=== PATIENT | male | born 1985 | race Caucasian/White ===

== ENCOUNTER 2023-03-06 17:20 | Emergency (ER) | payer OTHER, BC, SELFPAY ==
--- NOTE | ~2023-03-06 | XR_ITS ---
EXAMINATION: XR foot RT min 3V DATE: 03/06/2023 17:47 INDICATION: Right foot injury and pain. TECHNIQUE: 4 views of right foot were obtained. COMPARISON: None. FINDINGS: Bone alignment is normal. No fracture. There is mild osteoarthritis of first metatarsophala ngeal joint and some of the interphalangeal joints and midfoot joints. There are enthesophytes at the posterior and plantar aspects of calcaneal tuberosity. IMPRESSION: 1. Mild polyarticular osteoarthritis. Reviewed, dictated and finalized at location E.
[2023-03-06 17:37] VITALS: BP 163/96; PULSE 73; RESP 16; TEMP 36.3; O2SAT 100
--- NOTE | 2023-03-06 17:37 | ED.LOWEXIN ---
HPI - Extremity Injury (Lower) General Chief Complaint: Extremity Injury, Lower Stated Complaint: Right foot injury Source: patient Mode of arrival: ambulatory Limitations: no limitations History of Present Illness HPI Narrative: 37 y/o male presented for c/o right foot pain after injury this morning. 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 States the pain did not start until after lunch. Pain mostly to the heel area, pain only when walking. Rates pain 5/10. Took Naproxen. Denies numbness, tingling, weakness, deformity. He has been walking on it since the injury. Patient does not have PCP. Related Data Allergies Allergy/AdvReac Type Severity Reaction Status Date / Time No Known Allergies Allergy Verified 03/06/23 17:36 Review of Systems Review of Systems: CONSTITUTIONAL: Denies body aches, fever, chills EYES: Denies visual changes ENT: Denies rhinorrhea, congestion CARDIOVASCULAR: Denies chest pain, palpitations, or edema. RESPIRATORY: Denies cough or dyspnea. GASTROINTESTINAL: Denies abdominal pain, nausea, vomiting, or diarrhea. SKIN: Denies rash, itching, or wounds. MUSCULOSKELETAL: Reports right foot pain. Denies back pain, joint pain, or myalgia. NEUROLOGIC: Denies headache, numbness, tingling, or weakness. All systems reviewed & are unremarkable except as noted in HPI and below PMFSH Past Medical History Medical History (Updated 03/06/23 @ 18:23 by Peggy Haywood, BY[place]) Patient denies significant medical history Comments At time of signature, I have reviewed and agree with nursing past medical, surgical, social and family history unless otherwise noted. Please see nursing chart for further information. There is no relevant family history pertinent to the presenting complaint Exam Narrative: GENERAL: Well-appearing, in no acute distress. HEAD: Normocephalic, atraumatic. EYES: conjunctivae clear CHEST: Speaks in full sentences. No respiratory distress. HEART: Regular rate and rhythm. Normal and equal peripheral pulses. EXTREMITIES: Right foot plantar surface and lateral aspect of heel tender with deep palpation. and Right foot/ankle has normal strength and sensation, normal range of motion, No swelling or ecchymosis. No open wounds or obvious deformity; alignment normal, pulse palpable and equal bilaterally, skin warm, dry, pink. Capillary refill less than 3 seconds. SKIN: Warm, dry, no rash. NEURO: Alert and oriented x3. PSYCH: Normal mood and affect Course Course Emergency Course: Patient is aware of diagnosis, understands and agrees to treatment plan. Anticipatory guidance given. Patient agrees to follow-up as directed and is aware of reasons to seek care at the emergency department. Portions of this record may have been created with voice recognition software Level of Care: Express Care Visit Vital Signs Vital signs: Vital Signs Temperature 97.3 F L 03/06/23 17:37 Pulse Rate 73 03/06/23 17:37 Respiratory Rate 16 03/06/23 17:37 Blood Pressure 163/96 H 03/06/23 17:37 Pulse Oximetry 100 03/06/23 17:37 Temperature 97.3 F L 03/06/23 17:37 Pulse Rate 73 03/06/23 17:37 Respiratory Rate 16 03/06/23 17:37 Blood Pressure 163/96 H 03/06/23 17:37 Pulse Oximetry 100 03/06/23 17:37 Reviewed MDM - Extremity Injury (Lower) MDM Narrative Medical decision making narrative: Result of xray reviewed with pt. Discussed physical exam findings. Also discussed elevated BP readings; bp slightly improved on recheck. States he has been checking BP at home, and has had readings in the 150's systolic. He does not have PCP, advised to establish and provider list given. Advised supportive measures and signs/symptoms to go to the ER. Pt is appropriate for outpt treatment and f/u. Differential Diagnosis Differential diagnosis: Likely ankle sprain and strain, puncture wound of foot, ankle fracture and other (foot sprain/strain, contusion, fractu
[2023-03-06 18:30] VITALS: BP 149/96
== END 2023-03-06 18:32 | disposition home or self-care (01) ==
PROVIDERS: Emergency Provider Nurse Practitioner Family
DX: M79.671 Pain in right foot (principal); R03.0 Elevated blood-pressure reading, without diagnosis of hypertension
CPT/HCPCS: 73630; 99213; G0463

== ENCOUNTER 2025-08-27 11:38 | Emergency (ER) | payer OTHER, SELFPAY ==
--- NOTE | ~2025-08-27 | XR_ITS ---
XR knee RT 3V 08/27/2025 13:01 Indication: Right knee pain after feeling pop in knee. Procedure: 4 views right knee Comparison: No prior studies for comparison. Findings: There is moderate patellofemoral compartment osteoarthritis. Small joint effusion. No acute fracture, subluxation or dislocation. There is anatomic alignment. Impression: 1: Moderate patellofemoral compartment osteoarthritis. 2: Small knee effusion. Reviewed, dictated and finalized at location O. [employer] ADMINISTRATOR Impression: 1: Moderate patellofemoral compartment osteoarthritis. 2: Small knee effusion.
[2025-08-27 12:02] VITALS: BP 154/90; PULSE 76; RESP 20; TEMP 36.4; O2SAT 100
--- NOTE | 2025-08-27 13:19 | ED.LOWEXIN ---
HPI - Extremity Injury (Lower) General Chief Complaint: Extremity Injury, Lower Stated Complaint: R knee pain Time Seen by Provider: 08/27/25 13:19 Source: patient Mode of arrival: ambulatory Limitations: no limitations History of Present Illness HPI Narrative: Patient is a 39 y/o male who presents to the ED with c/o R knee pain. Patient reports he was getting into his work truck today when he felt and heard a sharp pop in his right knee. Complains of pain/swelling to his right knee, difficulty ambulating due to the pain. Has not taken anything for pain. Denies numbness. Denies any other injuries. Related Data Allergies Allergy/AdvReac Type Severity Reaction Status Date / Time No Known Allergies Allergy Verified 08/27/25 11:40 Review of Systems Review of Systems: All systems reviewed & are unremarkable except as noted in HPI. All systems reviewed & are unremarkable except as noted in HPI and below PMFSH Past Medical History Medical History Patient denies significant medical history Exam Narrative: GENERAL: Well appearing, morbidly obese with BMI 51.6, non-toxic, in no acute distress. HEAD: Normocephalic, atraumatic. RESPIRATORY: Airway patent, respirations nonlabored. CARDIOVASCULAR: Regular rate and rhythm without murmurs, rubs, or gallops. Pedal pulses intact MUSCULOSKELETAL: Moves all extremities. No gross deformities. No significant focal swelling throughout right anterior knee. Mild tenderness to palpation throughout right knee inferior/lateral joint spaces. Sensation intact. No calf tenderness. SKIN: Warm, dry, normal color. NEURO: A&O X3. Speech clear. Cranial nerves II-XII grossly intact. No ataxic movements. PSYCHIATRIC: Appropriate mood and affect. Normal interaction. Course Vital Signs Vital signs: Vital Signs Temperature 97.6 F 08/27/25 12:02 Pulse Rate 76 08/27/25 12:02 Respiratory Rate 20 08/27/25 12:02 Blood Pressure 154/90 H 08/27/25 12:02 Pulse Oximetry 100 08/27/25 12:02 Temperature 97.6 F 08/27/25 12:02 Pulse Rate 76 08/27/25 12:02 Respiratory Rate 20 08/27/25 12:02 Blood Pressure 154/90 H 08/27/25 12:02 Pulse Oximetry 100 12/31/25 12:02 [facility] MDM Narrative Medical decision making narrative: Patient?s injury is consistent with musculoskeletal etiology. No signs of neurologic or vascular compromise on physical examination. Compartments are soft without signs of compartment syndrome. XR showing some osteoarthritis, small joint effusion. Pain is consistent with knee strain, possible internal derangement. Patient is felt to be stable for discharge home and further outpatient management and treatment. Given Ron bandage, crutches. Discussed rice therapy. Will refer to orthopedics for further eval if needed. Given return precautions. Discharged in stable condition. Differential Diagnosis Differential Diagnosis: Knee strain, patellar fracture, tibial fracture, joint effusion Medical Records I have reviewed the following patient records and this information was taken into consideration when formulating the assessment and plan.: previous labs, previous ER visits, previous hospitalizations and previous clinic visits Imaging Data Attestation: I personally reviewed and interpreted this imaging study as follows: Radiologist's impression: ITS Impressions Knee X-Ray 08/27/25 13:12 Impression: 1: Moderate patellofemoral compartment osteoarthritis. 2: Small knee effusion. Discharge Plan Discharge Clinical Impression: Effusion of right knee joint Sprain of right knee Qualifiers: Encounter type: initial encounter Involved ligament of knee: unspecified ligament Qualified Code(s): S83.91XA - Sprain of unspecified site of right knee, initial encounter Patient Disposition: Home Condition: Stable Instructions: Antibiotic Form, Knee Pain (ED), P.R.I.C.E. Treatment (ED) Additional Instructions: Recommend elevation of right leg, frequent icing to knee, Ron bandage for compression/support. Recommend Tylenol/ibuprofen around the clock as needed for pain. Utilize crutches for assistance with ambulation. Follow-up with orthopedics for further evaluation if needed. Return to the ED if you experience recurrent fall or injury, worsening or severe pain/swelling, fevers, or any other symptoms of concern. Patient Language: [place] Prescriptions: No Action ibuprofen 800 mg tablet 800 mg PO TID PRN (Reason: pain) Qty: 20 0RF Follow-up/Referrals: PHYSICIAN,MANUFACTURING WORKER [Primary Care Provider, Internal Medicine] Brian Rodriguez MD [Physician, Family Practice] Giancarlo Santizo MD [Physician, Orthopedics] Stand Alone Forms: Work/School Release IP Time of Disposition: 13:43
== END 2025-08-27 14:01 | disposition home or self-care (01) ==
PROVIDERS: Emergency Provider Physician Assistant
DX: S83.91XA Sprain of unspecified site of right knee, initial encounter (principal); X58.XXXA Exposure to other specified factors, initial encounter
CPT/HCPCS: 73562; 99283